=== PATIENT | female | born 1960 | race Caucasian/White ===

== ENCOUNTER 2021-04-01 06:17 | Emergency (ER) | payer BC ==
--- NOTE | 2021-04-01 07:19 | EDM.PDOC ---
ED HPI GENERAL MEDICAL PROBLEM - General Chief Complaint: Fever Stated Complaint: COVID POSITIVE 03/25/21 HIGH FEVER Time Seen by Provider: 04/01/21 07:16 Source of Information: Reports: Patient, RN, RN Notes Reviewed History Limitations: Reports: No Limitations - History of Present Illness INITIAL COMMENTS - FREE TEXT/NARRATIVE: Pt presents to ER from home by POV with c/o high fevers from COVID. Pt claims she was confirmed COVID positive on 03/25/21. She has been taking Tylenol and Ibuprofen without relief. Pt states she has called her clinic twice asking for help with symptom relief, and was prescribed Toradol, but was told that there was nothing else that can be done for COVID symptoms. Pt admits to cough, shortness of breath, nausea, vomiting, headache, body aches, fever, fatigue, loss of taste and loss of appetite. Denies chest pain, difficulty breathing, abdominal pain, hemoptysis, or syncope. Onset: Gradual Onset Date: 03/25/21 Duration: Constant Location: Reports: Generalized Quality: Reports: Ache Severity: Moderate Improves with: Reports: None Worsens with: Reports: None Context: Reports: Sick Contact ( also has COVID) Associated Symptoms: Reports: Cough, Fever/Chills, Headaches, Loss of Appetite, Malaise Treatments MANAGER DATA: Reports: Acetaminophen, NSAIDS - Related Data Allergies Allergy/AdvReac Type Severity Reaction Status Date / Time morphine Allergy Hives Verified 04/05/18 14:26 tree nut Allergy Anaphylactic Verified 04/05/18 14:26 Shock environmental Allergy Hives Uncoded 04/05/18 14:26 Home Meds: Home Meds Ketorolac [Toradol] 10 mg PO Q6HR PRN 04/01/21 [History] Past Medical History 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 ED EXAM, GENERAL - Physical Exam Exam: See Below Exam Limited By: No Limitations General Appearance: Alert, WD/WN, No Apparent Distress, Obese Eye Exam: Bilateral Eye: Normal Inspection (No scleral icterus) Nose: Normal Inspection Throat/Mouth: Normal Voice, No Airway Compromise Head: Atraumatic, Normocephalic Neck: Normal Inspection Respiratory/Chest: No Respiratory Distress, Lungs Clear, Normal Breath Sounds, No Accessory Muscle Use, Chest Non-Tender. No: Crackles, Rales, Rhonchi, Wheezing, Stridor, Pleural Rub, Retractions, Splinting Cardiovascular: Normal Peripheral Pulses, Regular Rate, Rhythm, No Edema, No Gallop, No JVD, No Murmur, No Rub GI/Abdominal: Normal Bowel Sounds, Soft, Non-Tender Extremities: Normal Inspection Neurological: Alert, Oriented, Normal Cognition, No Motor/Sensory Deficits Psychiatric: Normal Mood, Flat Affect Skin Exam: Warm, Dry, Intact, Normal Color, No Rash Course - Vital Signs Last Recorded V/S: Last Vital Signs Temp 98.9 F 04/01/21 07:28 Pulse 82 04/01/21 07:28 Resp 16 04/01/21 07:28 BP 118/76 04/01/21 07:28 Pulse Ox 96 04/01/21 07:28 - Orders/Labs/Meds Orders: Active Orders 24 hr Category Date Time Status Peripheral IV Care [RC] . DIRECTED Care 04/01/21 07:29 Active Chest 1V Frontal [CR] Stat Exams 04/01/21 07:28 Ordered FERRITIN [CHEM] Stat Lab 04/01/21 07:41 Received Sodium Chloride 0.9% [Saline Flush] Med 04/01/21 07:29 Active 10 ml FLUSH ASDIRECTED PRN Peripheral IV Insertion Adult [OM.PC] Stat Oth 04/01/21 07:29 Ordered Medication Orders Sodium Chloride (Sodium Chloride 0.9% 10 Ml Syringe) 10 ml FLUSH ASDIRECTED PRN PRN Reason: Keep Vein Open Last Admin: 04/01/21 07:36 Dose: 10 ml Documented by: CANELO Labs: Laboratory Tests 04/01/21 04/01/21 04/01/21 Range/Units 07:41 07:41 07:41 WBC 2.8 L (5.0-10.0) 10^3/uL RBC 4.18 L (4.2-5.4) 10^6/uL Hgb 12.6 (12.0-16.0) g/dL Hct 36.9 L (37.0-47.0) % MCV 88.3 (80-100) fL MCH 30.1 (27.0-34.0) pg MCHC 34.1 (33.0-35.0) g/dL Plt Count 125 L (150-450) 10^3/uL Neut % (Auto) 72.8 (42.2-75.2) % Lymph % (Auto) 20.7 (20.5-50.1) % [place] % (Auto) 6.5 (2-8) % Eos % (Auto) 0.0 L (1.0-3.0) % Baso % (Auto) 0.0 (0.0-1.0) % PT 9.8 (9.0-12.0) SEC INR 1.0 (0.9-1.2) APTT 28.7 (22.0-34.0) SEC Sodium 135 L (136-145) mmol/L Potassium 3.9 (3.5-5.1) mmol/L Chloride 97 L (98-107) mmol/L Carbon Dioxide 28 (21-32) mmol/L Anion Gap 13.9 H (7-13) mEq/L BUN 10 (7-18) mg/dL Creatinine 0.79 (0.55-1.02) mg/dL Est Cr Clr Drug Dosing 70.89 mL/min Estimated GFR (MDRD) > 60 BUN/Creatinine Ratio 12.7 (No establ ref range) Glucose 104 H (70-99) mg/dL Lactic Acid (0.4-2.0) mmol/L Calcium 8.2 L (8.5-10.1) mg/dL Total Bilirubin 0.4 (0.2-1.0) mg/dL AST 32 (15-37) U/L ALT 19 (14-59) U/L Alkaline Phosphatase 58 (46-116) U/L Lactate Dehydrogenase 312 H (81-234) U/L Troponin I High Sens 6 (<=51) pg/mL C-Reactive Protein 7.4 H (0.0-0.9) mg/dL Total Protein 7.0 (6.4-8.2) g/dL Albumin 3.3 L (3.4-5.0) g/dL Globulin 3.7 Albumin/Globulin Ratio 0.89 04/01/ Range/Units 07:41 WBC (5.0-10.0) 10^3/uL RBC (4.2-5.4) 10^6/uL Hgb (12.0-16.0) g/dL Hct (37.0-47.0) % MCV (80-100) fL MCH (27.0-34.0) pg MCHC (33.0-35.0) g/dL Plt Count (150-450) 10^3/uL Neut % (Auto) (42.2-75.2) % Lymph % (Auto) (20.5-50.1) % [place] % (Auto) (2-8) % Eos % (Auto) (1.0-3.0) % Baso % (Auto) (0.0-1.0) % PT (9.0-12.0) SEC INR (0.9-1.2) APTT (22.0-34.0) SEC Sodium (136-145) mmol/L Potassium (3.5-5.1) mmol/L Chloride (98-107) mmol/L Carbon Dioxide (21-32) mmol/L Anion Gap (7-13) mEq/L BUN (7-18) mg/dL Creatinine (0.55-1.02) mg/dL Est Cr Clr Drug Dosing mL/min Estimated GFR (MDRD) BUN/Creatinine Ratio (No establ ref range) Glucose (70-99) mg/dL Lactic Acid 0.3 L (0.4-2.0) mmol/L Calcium (8.5-10.1) mg/dL Total Bilirubin (0.2-1.0) mg/dL AST (15-37) U/L ALT (14-59) U/L Alkaline Phosphatase (46-116) U/L Lactate Dehydrogenase (81-234) U/L Troponin I High Sens (<=51) pg/mL C-Reactive Protein (0.0-0.9) mg/dL Total Protein (6.4-8.2) g/dL Albumin (3.4-5.0) g/dL Globulin Albumin/Globulin Ratio Meds: Medications Generic Name Dose Route Start Last Admin Trade Name Freq PRN Reason Stop Dose Admin Sodium Chloride 10 ml 04/01/21 07:29 04/01/21 07:36 Sodium Chloride 0.9% 10 Ml Syringe FLUSH 10 ml ASDIRECTED PRN Administration Keep Vein Open Discontinued Medications Generic Name Dose Route Start Last Admin Trade Name Liz PRN Reason Stop Dose Admin Dexamethasone 8 mg 04/01/21 07:30 04/01/21 07:35 Dexamethasone 4 Mg/Ml Sdv IVPUSH 04/01/21 07:31 8 mg ONETIME ONE Administration Sodium Chloride 1,000 mls @ 999 mls/hr 04/01/21 07:31 04/01/21 07:36 Normal Saline IV 04/01/21 08:31 999 mls/hr .BOLUS ONE Administration Ondansetron HCl 4 mg 04/01/21 07:29 04/01/21 07:35 Ondansetron 4 Mg/2 Ml Sdv IV 04/01/21 07:30 4 mg ONETIME ONE Administration Promethazine HCl/Codeine 10 ml 04/01/21 07:30 04/01/21 07:36 Codeine/Promethazine 10-6.25 Mg/5 Ml Syrup 5 Ml Ud Cup PO 04/01/21 07:31 10 ml ONETIME ONE Administration - Radiology Interpretation Free Text/Narrative:: XR Chest: mild patchy ground glass opacities, no focal consolidations. See Rad. report. Departure - Departure Time of Disposition: 08:41 Disposition: Home, Self-Care 01 Condition: Good Clinical Impression: COVID-19 virus infection - Discharge Information *PRESCRIPTION DRUG MONITORING PROGRAM REVIEWED*: Not Applicable *COPY OF PRESCRIPTION DRUG MONITORING REPORT IN PATIENT NATAN: Not Applicable Instructions: 10 Things You Can Do to Manage Your COVID-19 Symptoms at Home - [facility] (12/13/2020) Forms: ED Department Discharge Additional Instructions: Rx: Dexamethasone 4mg Rx: Promethazine Codeine Syrup *Do not drive while taking this medication. Rx: Zofran 4mg Take Enteric Coated Aspirin (EC Aspirin) 325mg one tablet by mouth once a day until your COVID symptoms have completely resolved. Drink plenty of water or Gatorade. Follow up in clinic if not improving as expected after 14 days of illness. Return to ER or call 911 if you develop any difficulty breathing. Sepsis Event Note (ED) - Focused Exam Vital Signs: Vital Signs Temp Pulse Resp BP Pulse Ox 04/01/21 07:28 98.9 F 82 16 118/76 96 - My Orders Last 24 Hours: My Active Orders 04/01/21 07:28 Chest 1V Frontal [CR] Stat 04/01/21 07:29 Peripheral IV Care [RC] . DIRECTED Sodium Chloride 0.9% [Saline Flush] 10 ml FLUSH ASDIRECTED PRN Peripheral IV Insertion Adult [OM.PC] Stat 04/01/21 07:41 FERRITIN [CHEM] Stat - Assessment/Plan Last 24 Hours: My Active Orders 04/01/21 07:28 Chest 1V Frontal [CR] Stat 04/01/21 07:29 Peripheral IV Care [RC] . DIRECTED Sodium Chloride 0.9% [Saline Flush] 10 ml FLUSH ASDIRECTED PRN Peripheral IV Insertion Adult [OM.PC] Stat 04/01/21 07:41 FERRITIN [CHEM] Stat
[2021-04-01] MEDS ORDERED: Sodium Chloride 0.9% 10 ML Syringe FLUSH PRN (07:29)
[2021-04-01] MEDS ORDERED: Ondansetron 4 MG/2 ML SDV IV ONE (07:29)
[2021-04-01] MEDS ORDERED: Codeine/Promethazine 10-6.25 MG/5 ML Syrup 5 ML UD Cup PO ONE (07:30)
[2021-04-01] MEDS ORDERED: Dexamethasone 4 MG/ML SDV IVPUSH ONE (07:30)
[2021-04-01] MEDS ORDERED: Sodium Chloride 0.9% 1,000 ML IV ONE (07:31)
[2021-04-01 08:17] LABS: PTT,PARTIAL THROMBOPLSTIN TIME 28.7 SEC (22.0-34.0)
[2021-04-01 08:20] LABS: ANION GAP 13.9 mEq/L (7-13); CHLORIDE,CL 97 mmol/L (98-107); SODIUM,NA 135 mmol/L (136-145)
--- NOTE | 2021-04-01 08:57 | CR ---
PROCEDURE INFORMATION: Exam: XR Chest Exam date and time: 04/01/2021 8:31 AM Age: 61 years old Clinical indication: Covid, cough, short of breath TECHNIQUE: Imaging protocol: XR of the chest. Views: 1 view. COMPARISON: No relevant prior studies available. FINDINGS: Lungs: Ill-defined, bilateral, asymmetric peripheral airspace disease which can be due to pneumonia given the history. No previous exam available to help determine interval change. Pleural spaces: No pleural effusion or pneumothorax. Heart/Mediastinum: The cardiac silhouette is not enlarged. The mediastinal contours are normal. Bones/joints: No acute osseous abnormality. IMPRESSION: Bilateral airspace disease which could be due to COVID-19 pneumonia.
== END 2021-04-01 09:00 | disposition home or self-care (01) ==
LOC: DL.ED 06:17
DX: U07.1 COVID-19 (principal); Z88.5 Allergy status to narcotic agent; Z91.048 Other nonmedicinal substance allergy status
CPT/HCPCS: 36415; 71045; 80053; 82728; 83605; 83615; 84484; 85025; 85610; 85730; 86140; 96374; 96375; 99285; A9270; J1100; J2405; J7030